=== PATIENT | female | born 1940 | race Caucasian/White ===

== ENCOUNTER 2025-01-13 10:59 | Inpatient (IN) | payer OTHER, MEDICARE ==
[2025-01-13] MEDS ORDERED: NA CHLORIDE 0.9% 1,000 ML ONE (12:35)
[2025-01-13] MEDS ORDERED: NA CHLORIDE 0.9% 50 ML ONE (13:16)
[2025-01-13] MEDS ORDERED: CEFTRIAXONE 1000 MG/VIAL ONE (13:16)
[2025-01-13 13:45] LABS: Sqamous Epithelial <5 /HPF (None Seen); Urine Culture Reflex Order REFLEXED; Urine Microscopic Reflex YN ORDER UMIC
[2025-01-13 13:55] LABS: Influenza A Ag Negative; Influenza B Ag Negative
[2025-01-13 13:56] LABS: SARS-CoV-2 Antigen Rapid Res Positive (Negative)
[2025-01-13 14:10] LABS: Absolute Lymphocytes (CBC) 1.2 K/uL (0.7-4.9); Hematocrit 35.3 % (36.0-45.0); Hemoglobin 11.4 g/dL (12.0-15.0); MCH 29.4 pg (27.0-35.0); MCHC 32.3 g/dL (32.0-36.0); MCV 91.0 fL (80-100); MPV 12.3 fL (7.6-11.3); Nucleated RBC Absolute Count 0.0 (0-0); Nucleated Red Blood Cells % 0.0 % (0-0); RBC Red Blood Cell Count 3.88 M/uL (3.86-4.86); White Blood Count 6.30 thou/uL (4.3-10.9)
--- NOTE | 2025-01-13 14:15 | RAD REPORT ---
EXAMINATION: ONE VIEW CHEST XR CLINICAL INDICATION: Female, 84 years old.,COUGH TECHNIQUE: Frontal chest projection is submitted. Examination is limited by patient positioning and t echnique. COMPARISON: 11/19/2024 FINDINGS: The lungs are well inflated. Progressive right pleural-parenchymal opacification with progressive rig ht effusion component now up to moderate. Partial improvement of left basilar/retrocardiac airspace opacification. Central interstitial prominence, stable. No pneumothorax. The heart is moderately enla rged in size. Mediastinal contours are unchanged.. IMPRESSION: Progressive right basilar pleural-parenchymal opacity favoring atelectasis and effusion. Underlying p neumonia cannot be entirely excluded.
[2025-01-13 14:16] LABS: PT Prothrombin Time 13.6 SECONDS (10-13.0); Protime INR 1.21
[2025-01-13 14:33] LABS: ALT/SGPT 18.0 U/L (13-56); AST/SGOT 21.0 U/L (15-37); Albumin 2.9 g/dL (3.4-5.0); Albumin/Globulin Ratio 0.7 (1.1-1.8); Alkaline Phosphatase 102.0 U/L (45-117); Anion Gap 10.8 mEq/L (5.0-15.0); BUN Blood Urea Nitrogen 15.0 mg/dL (7-18); Bilirubin Indirect, Calculated 0.8 mg/dL (0.2-0.8); Globulin 3.9 g/dL (2.3-3.5); Glucose Level 97.0 mg/dL (74-106); Magnesium 2.1 mg/dL (1.6-2.4); NT PRO-BNP 1287.0 pg/mL (<450); Potassium 2.8 mEq/L (3.5-5.1)
[2025-01-13 14:37] LABS: Troponin High Sensitivity 267.5 pg/mL (<58.9)
[2025-01-13] MEDS ORDERED: ASPIRIN 81 MG CHEWABLE TABLET ONE (14:39)
[2025-01-13] MEDS ORDERED: AZITHROMYCIN 250 MG TAB ONE (14:40)
[2025-01-13] MEDS ORDERED: FAMOTIDINE 20 MG TAB ONE (14:40)
[2025-01-13] MEDS ORDERED: POTASSIUM 25 MEQ EFFERV TAB ONE (15:15)
[2025-01-13] MEDS ORDERED: ENOXAPARIN 100 MG/ML SYR SQ ONE (15:16)
--- NOTE | 2025-01-13 16:24 | ER ---
Nurse's Notes [facility] Name: Svetlana Santiago Age: 84 yrs Sex: Female : 1940 Arrival Date: 01/13/2025 Time: 10:59 Bed 17 Private MD: Diagnosis: UTI/ Urinary tract infection, site not specified;SARS-associated coronavirus as the cause of diseases classified elsewhere;Hypokalemia;Non ST elevation [place];Abnormal electrocardiogram [ECG] [EKG];Acute upper respiratory infection, unspecified;Cough;Pleural effusion, not elsewhere classified-right Presentation: 01/13 11:15 Chief complaint: Patient states: Cough and congestion started Saturday. just ll1 released from our hospital for covid, but her covid test was negative Saturday. + diarrhea. Coronavirus screen: Client denies travel out of the [place] in the last 14 days. congestion, cough unrelated to allergies, difficulty breathing, fatigue, Client presents with at least one sign or symptom that may indicate coronavirus-19. Standard/surgical mask placed on the client. Ebola Screen: Patient denies travel to an Ebola-affected area in the 21 days before illness onset. Resp Distress? Mild respiratory distress is noted. Initial Sepsis Screen: Does the patient meet any 2 criteria? No. Patient's initial sepsis screen is negative. Does the patient have a suspected source of infection? No. Patient's initial sepsis screen is negative. Risk Assessment: Do you want to hurt yourself or someone else? Patient reports no desire to harm self or others. Onset of symptoms was January 08, 2025. 11:15 Method Of Arrival: Ambulatory ll1 11:15 Acuity: AL 3 ll1 Historical: - Allergies: 11:14 Codeine; ll1 11:14 Iodine; ll1 - PMHx: 11:14 diabetes mellitus; one kidney; PULMONARY HYPERTENSION (one kidney); Hypothyroidism; ll1 Hypertensive disorder; - PSHx: 11:14 1 kidney removed; cataract repair; ll1 - Immunization history:: Adult Immunizations up to date. - Infectious Disease History:: Denies. - Social history:: Smoking status: Patient denies any tobacco usage or history of. Screenin:56 [facility] ED Fall Risk Assessment (Adult) History of falling in the last 3 months, db including since admission No falls in past 3 months (0 pts) Confusion or Disorientation No (0 pts) Intoxicated or Sedated No (0 pts) Impaired Gait Yes (1 pt) Mobility Assist Device Used Yes (1 pt) Altered Elimination No (0 pt) Score/Fall Risk Level 0 - 2 = Low Risk Oriented to surroundings, Maintained a safe environment. Abuse screen: Denies threats or abuse. Denies injuries from another. Nutritional screening: No deficits noted. Tuberculosis screening: No symptoms or risk factors identified. Assessment: 13:00 Reassessment: Patient and/or family updated on plan of care and expected duration. Pain db level reassessed. Patient is alert, oriented x 3, equal unlabored respirations, skin warm/dry/pink. PT REPORTS INCREASED SOB WHEN AMBULATORY TO THE RESTROOM. 14:54 Reassessment: Patient appears in no apparent distress at this time. Patient and/or db family updated on plan of care and expected duration. Pain level reassessed. Patient is alert, oriented x 3, equal unlabored respirations, skin warm/dry/pink. General: Appears in no apparent distress. comfortable, Behavior is calm, cooperative. Pain: Denies pain. Neuro: Level of Consciousness is awake, alert, obeys commands, Oriented to person, place, time, situation. Cardiovascular: Capillary refill < 3 seconds. Respiratory: Reports shortness of breath Airway is patent Breath sounds are clear bilaterally. 16:00 Reassessment: Patient appears in no apparent distress at this time. Patient and/or db family updated on plan of care and expected duration. Pain level reassessed. Patient is alert, oriented x 3, equal unlabored respirations, skin warm/dry/pink. 16:46 Reassessment: PT AMBULATORY TO RESTROOM. db 19:49 General: Appears in no apparent distress. comfortable, Behavior is calm, cooperative. al5 Pain: Denies pain. Neuro: Level of Consciousness is awake, alert, obeys commands, Oriented to person, place, time, situation. Cardiovascular: Capillary refill < 3 seconds Patient's skin is warm and dry. Respiratory: Airway is patent Respiratory effort is even, unlabored, Respiratory pattern is regular, symmetrical. GI: No signs and/or symptoms were reported involving the gastrointestinal system. : No signs and/or symptoms were reported regarding the genitourinary system. EENT: No signs and/or symptoms were reported regarding the EENT system. Derm: Skin is intact, Skin is pink, warm \T\ dry. normal. Musculoskeletal: Circulation, motion, and sensation intact. Range of motion: intact in all extremities. Vital Signs: 11:15 BP 108 / 59; Pulse 71; Resp 18; Temp 97.9; Pulse Ox 95% on R/A; Weight 89.36 kg; Height ll1 5 ft. 2 in. ; Pain 0/10; 13:30 BP 173 / 59; Pulse 89; Resp 20; Pulse Ox 96% on 3 lpm NC; db 14:00 BP 113 / 56; Pulse 20; Resp 82; Pulse Ox 100% on 3 lpm NC; db 14:30 BP 116 / 51; Pulse 82; Resp 18; Pulse Ox 100% ; db 15:30 BP 125 / 62; Pulse 78; Resp 18; Pulse Ox 100% on 3 lpm NC; db 16:30 BP 129 / 67; Pulse 76; Resp 18; Pulse Ox 100% on 3 lpm NC; db 17:30 BP 149 / 39; Pulse 73; Resp 18; Pulse Ox 96% 3 lpm ; db 18:00 BP 155 / 51; Pulse 72; Resp 20; Pulse Ox 98% 3 lpm ; db 18:30 BP 125 / 72; Pulse 71; Resp 16; Pulse Ox 100% ; db 19:00 BP 140 / 51; Pulse 67; Resp 16; Pulse Ox 100% on 3 lpm NC; al5 11:15 Body Mass Index 36.03 (89.36 kg, 157.48 cm) ll1 11:15 Pain Scale: Adult ll1 ED Course: 11:04 Patient arrived in ED. mr 11:09 Néstor Hendrix MD is Attending Physician. christopher 11:14 Arm band placed on. ll1 11:18 Triage completed. ll1 12:29 Patient placed in an exam room, on a stretcher. ll1 12:47 Ifeoma Davis, DARBY is Primary Nurse. db 12:54 EKG done, by water pollution control technician. ts3 13:08 Missed attempt(s): 22 gauge in left antecubital area. Bleeding controlled, band aid db applied, catheter tip intact. 13:08 First set of blood cultures drawn. db 13:18 XRAY Chest (1 view) In Process Unspecified. EDMS 13:32 COVID-19 Ag + Flu A+B Ag Sent. ts3 13:33 Urine collected: clean catch specimen, sent to lab. ts3 13:58 Initial lab(s) drawn, by me, sent to lab. Second set of blood cultures drawn. Inserted db saline lock: 22 gauge in left upper arm, using aseptic technique. Blood collected. Flushed with 10 mL NS. 15:44 CT Chest Wo Con In Process Unspecified. EDMS 16:22 Baljinder Osei MD is Hospitalizing Provider. [facility] 19:07 Patient has correct armband on for positive identification. Bed in low position. Call db light in reach. Side rails up X 1. Provided Education on: ADMIT. Client placed on continuous cardiac and pulse oximetry monitoring. NIBP monitoring applied. telemetry monitor on. Pulse ox on. NIBP on. Warm blanket given. Pillow given. 19:07 No provider procedures requiring assistance completed. Patient admitted, IV remains in db place. 19:54 La Harris RN is Primary Nurse. al5 Administered Medications: 13:58 Drug: NS 0.9% IV 1000 ml IV at 1000 ml once; to be given as a bolus over 60 minutes db Route: IV; Rate: 1000 ml; Site: left upper arm; 19:06 Follow up: Response: No adverse reaction; IV Status: Completed infusion; IV Intake: db 1000ml 14:00 Drug: Rocephin IV 1 grams IV at per protocol once; Given slow IV push per pharmacy db instructions Route: IV; Rate: per protocol; Site: left upper arm; 19:06 Follow up: Response: No adverse reaction; IV Status: Completed infusion; IV Intake: 50mldb 14:40 Drug: AZITHromycin PO 500 mg PO once Route: PO; db 19:06 Follow up: Response: No adverse reaction db 14:40 Drug: Famotidine PO 40 mg PO once Route: PO; db 19:06 Follow up: Response: No adverse reaction db 14:40 Drug: Aspirin PO Chewable Tablet 81 mg PO once Route: PO; db 19:06 Follow up: Response: No adverse reaction db 15:30 Drug: Potassium PO Effervescent Tablet 50 mEq PO once; dissolve in 4 ounces of water or db juice Route: PO; 19:06 Follow up: Response: No adverse reaction db 16:00 Drug: Enoxaparin Sub-Q 1 mg/kg Sub-Q once Route: Sub-Q; Site: right lower abdomen; db 19:05 Follow up: Response: No adverse reaction db Medication: 19:05 VIS not applicable for this client. db Intake: 19:06 IV: 1000ml; Total: 1000ml. db 19:06 IV: 50ml; Total: 1050ml. db Outcome: 16:24 Decision to Hospitalize by Provider. [facility] 20:47 Admitted to Med/surg accompanied by tech, family with patient, via wheelchair, room al5 402, with oxygen, with chart, 20:47 Condition: stable 20:47 Instructed on the need for admit, 20:57 Patient left the ED. al5 Signatures: Dispatcher [employer] EDMS Néstor Hendrix MD MD cha Rivera, Mary, [facility] Reg mr Cristina Parry, RN RN ll1 Ifeoma Davis RN RN La Rebolledo RN RN al5 Ashia Bowden ts3 Corrections: (The following items were deleted from the chart) 11:18 11:15 BP 108 / 59; Pulse 71bpm; Resp 18bpm; Pulse Ox 91% RA; Temp 97.9F; 89.36 kg; ll1 Height 5 ft. 2 in.; BMI: 36.0; Pain 0/10, Adult; ll1 11:21 11:15 BP 108 / 59; Pulse 71bpm; Resp 18bpm; Pulse Ox 94% RA; Temp 97.9F; 89.36 kg; ll1 Height 5 ft. 2 in.; BMI: 36.0; Pain 0/10, Adult; ll1 20:57 19:07 Admitted to Med/surg db al5 20:57 19:07 Condition: stable al5 20:57 19:07 Instructed on the need for admit, db al5
--- NOTE | 2025-01-13 16:25 | EDPHYS ---
Physician Documentation [facility] Name: Svetlana Santiago Age: 84 yrs Sex: Female : 1940 Arrival Date: 01/13/2025 Time: 10:59 Bed 17 Private MD: ED Physician Néstor Hendrix HPI: 01/13 16:12 This 84 yrs old Female presents to ER via Ambulatory with complaints of Cough, christopher Congestion, Shortness Of Breath. 16:12 The patient or guardian reports airway noise, cough, difficulty breathing. Onset: The christopher symptoms/episode began/occurred 3 day(s) ago. Severity of symptoms: At their worst the symptoms were moderate, in the emergency department the symptoms are unchanged. Modifying factors: The symptoms are alleviated by nothing, the symptoms are aggravated by exertion. Associated signs and symptoms: The patient has no apparent associated signs or symptoms. The patient has experienced similar episodes in the past, a few times. Historical: - Allergies: 11:14 Codeine; ll1 11:14 Iodine; ll1 - PMHx: 11:14 diabetes mellitus; one kidney; PULMONARY HYPERTENSION (one kidney); Hypothyroidism; ll1 Hypertensive disorder; - PSHx: 11:14 1 kidney removed; cataract repair; ll1 - Immunization history:: Adult Immunizations up to date. - Infectious Disease History:: Denies. - Social history:: Smoking status: Patient denies any tobacco usage or history of. ROS: 16:13 Constitutional: Negative for fever, chills, and weight loss, Eyes: Negative for injury, christopher pain, redness, and discharge, ENT: Negative for injury, pain, and discharge, Neck: Negative for injury, pain, and swelling, Cardiovascular: Negative for chest pain, palpitations, and edema, Abdomen/GI: Negative for abdominal pain, nausea, vomiting, diarrhea, and constipation, Back: Negative for injury and pain, : Negative for injury, bleeding, discharge, and swelling, MS/Extremity: Negative for injury and deformity, Skin: Negative for injury, rash, and discoloration, Neuro: Negative for headache, weakness, numbness, tingling, and seizure, Psych: Negative for depression, anxiety, suicide ideation, homicidal ideation, and hallucinations, Allergy/Immunology: Negative for hives, rash, and allergies, Endocrine: Negative for neck swelling, polydipsia, polyuria, polyphagia, and marked weight changes, Hematologic/Lymphatic: Negative for swollen nodes, abnormal bleeding, and unusual bruising, 16:13 Respiratory: Positive for cough, shortness of breath, at rest. 16:13 MS/extremity: Negative for acute changes, Exam: 16:13 Constitutional: This is a well developed, well nourished patient who is awake, alert, christopher and in no acute distress. Head/Face: Normocephalic, atraumatic. Eyes: Pupils equal round and reactive to light, extra-ocular motions intact. Lids and lashes normal. Conjunctiva and sclera are non-icteric and not injected. Cornea within normal limits. Periorbital areas with no swelling, redness, or edema. ENT: Nares patent. No nasal discharge, no septal abnormalities noted. Tympanic membranes are normal and external auditory canals are clear. Oropharynx with no redness, swelling, or masses, exudates, or evidence of obstruction, uvula midline. Mucous membranes moist. Neck: Trachea midline, no thyromegaly or masses palpated, and no cervical lymphadenopathy. Supple, full range of motion without nuchal rigidity, or vertebral point tenderness. No Meningismus. Chest/axilla: Normal chest wall appearance and motion. Nontender with no deformity. No lesions are appreciated. Cardiovascular: Regular rate and rhythm with a normal S1 and S2. No gallops, murmurs, or rubs. Normal PMI, no JVD. No pulse deficits. Respiratory: Lungs have equal breath sounds bilaterally, clear to auscultation and percussion. No rales, rhonchi or wheezes noted. No increased work of breathing, no retractions or nasal flaring. Abdomen/GI: Soft, non-tender, with normal bowel sounds. No distension or tympany. No guarding or rebound. No evidence of tenderness throughout. Back: No spinal tenderness. No costovertebral tenderness. Full range of motion. Female : Normal external genitalia. Skin: Warm, dry with normal turgor. Normal color with no rashes, no lesions, and no evidence of cellulitis. MS/ Extremity: Pulses equal, no cyanosis. Neurovascular intact. Full, normal range of motion., bilateral aka Neuro: Awake and alert, GCS 15, oriented to person, place, time, and situation. Cranial nerves II-XII grossly intact. Motor strength 5/5 in all extremities. Sensory grossly intact. Cerebellar exam normal. Normal gait. Psych: Awake, alert, with orientation to person, place and time. Behavior, mood, and affect are within normal limits. 16:13 ECG was reviewed by the Attending Physician. Vital Signs: 11:15 BP 108 / 59; Pulse 71; Resp 18; Temp 97.9; Pulse Ox 95% on R/A; Weight 89.36 kg; Height ll1 5 ft. 2 in. ; Pain 0/10; 13:30 BP 173 / 59; Pulse 89; Resp 20; Pulse Ox 96% on 3 lpm NC; db 14:00 BP 113 / 56; Pulse 20; Resp 82; Pulse Ox 100% on 3 lpm NC; db 14:30 BP 116 / 51; Pulse 82; Resp 18; Pulse Ox 100% ; db 15:30 BP 125 / 62; Pulse 78; Resp 18; Pulse Ox 100% on 3 lpm NC; db 16:30 BP 129 / 67; Pulse 76; Resp 18; Pulse Ox 100% on 3 lpm NC; db 17:30 BP 149 / 39; Pulse 73; Resp 18; Pulse Ox 96% 3 lpm ; db 18:00 BP 155 / 51; Pulse 72; Resp 20; Pulse Ox 98% 3 lpm ; db 18:30 BP 125 / 72; Pulse 71; Resp 16; Pulse Ox 100% ; db 19:00 BP 140 / 51; Pulse 67; Resp 16; Pulse Ox 100% on 3 lpm NC; al5 11:15 Body Mass Index 36.03 (89.36 kg, 157.48 cm) ll1 11:15 Pain Scale: Adult ll1 MDM: 11:11 Medical Screening Exam initiated christopher 16:15 Differential diagnosis: Anemia Anxiety Reaction asthma, Bronchitis CHF exacerbation, christopher Chronic Obstructive Pulmonary Disease Myocardial Infarction pulmonary edema, Pulmonary Embolism reactive airway disease, Sepsis Unstable Angina. Antibiotic administration: Rocephin and Zithromax given. Differential Diagnosis: Obstructed Airway Bronchitis Influenza Upper Respiratory Infection Sinusitis Pharyngitis Otitis Media Allergic Rhinitis Asthma Exacerbation Viral Syndrome Pneumonia Tracheal Injury. Immunization status: Pneumococcal vaccine: within last 5 years. Influenza vaccine: within last 5 years. Data reviewed: vital signs, nurses notes, lab test result(s), EKG, radiologic studies, CT scan, plain films. Consideration of Admission/Observation Patient was admitted/placed on observation. Escalation of care including admission/observation considered. I considered the following discharge prescriptions or medication management in the emergency department Medications were administered in the Emergency Department. See MAR. Independent interpretation of the following test(s) in the Emergency Department EKG: See my EKG interpretation above. Test considered but Not performed: Ultrasound NO 2 D ECHO. Historians other than the Patient: Family Member: DAUGHTER IN LAW. Care significantly affected by the following chronic conditions: Diabetes, Hypertension, Chronic Kidney Disease, PULMONARY HYPERTENSION. 01/13 11:11 Order name: Basic Metabolic Panel; Complete Time: 14:51 [facility] 01/13 11:11 Order name: CBC with Diff; Complete Time: 14:51 [facility] 01/13 11:11 Order name: LFT's; Complete Time: 14:51 [facility] 01/13 11:11 Order name: Magnesium; Complete Time: 14:51 [facility] 01/13 11:11 Order name: NT PRO-BNP; Complete Time: 14:51 [facility] 01/13 11:11 Order name: PT-INR; Complete Time: 14:51 [facility] 01/13 11:11 Order name: Troponin HS; Complete Time: 14:51 [facility] 01/13 11:11 Order name: Blood Culture Adult (2) [facility] 01/13 11:11 Order name: Lactate w/ 2H reflex if indic.; Complete Time: 14:51 [facility] 01/13 11:11 Order name: UA Rfx Doug Cult if indicated; Complete Time: 14:12 [facility] 01/13 11:11 Order name: COVID-19 Ag + Flu A+B Ag; Complete Time: 14:12 [facility] 01/13 13:49 Order name: Urine Culture [facility] 01/13 18:19 Order name: Lactate w/ 2H reflex if indic. EDOR 01/13 18:19 Order name: C-Reactive Protein EDMS 01/13 18:19 Order name: C-Reactive Protein EDMS 01/13 18:19 Order name: C-Reactive Protein EDMS 01/13 18:19 Order name: C-Reactive Protein EDMS 01/13 18:19 Order name: Comprehensive Metabolic Panel EDMS 01/13 18:19 Order name: Comprehensive Metabolic Panel EDMS 01/13 18:19 Order name: Ferritin EDMS 01/13 18:19 Order name: Ferritin EDMS 01/13 18:19 Order name: Ferritin EDMS 01/13 18:19 Order name: Ferritin EDMS 01/13 18:19 Order name: Lipid Profile EDMS 01/13 18:19 Order name: Lipid Profile EDMS 01/13 18:19 Order name: CBC with Automated Diff EDMS 01/13 18:19 Order name: CBC with Automated Diff EDMS 01/13 18:19 Order name: CBC with Automated Diff EDMS 01/13 18:19 Order name: CBC with Automated Diff EDMS 01/13 18:19 Order name: Magnesium EDMS 01/13 18:19 Order name: Magnesium EDMS 01/13 18:19 Order name: Phosphorus EDMS 01/13 18:19 Order name: Phosphorus EDMS 01/13 18:19 Order name: Troponin High Sensitivity EDMS 01/13 18:19 Order name: Troponin High Sensitivity [facility]OR 01/13 18:20 Order name: Troponin High Sensitivity [facility] 01/13 11:11 Order name: XRAY Chest (1 view); Complete Time: 14:51 [facility] 01/13 14:55 Order name: CT Chest Wo Con; Complete Time: 18:43 [facility] 01/13 18:44 Order name: INCENTIVE SPIROMETRY [facility] 01/13 18:19 Order name: CONS Physician Consult [facility] 01/13 18:20 Order name: Patient Safety Orders [facility] 01/13 11:11 Order name: Cardiac monitoring; Complete Time: 12:54 [facility] 01/13 11:11 Order name: EKG - Nurse/Tech; Complete Time: 12:54 [facility] 01/13 11:11 Order name: IV Saline Lock; Complete Time: 14:10 [facility] 01/13 11:11 Order name: Labs collected and sent; Complete Time: 14:10 [facility] 01/13 11:11 Order name: O2 Per Protocol; Complete Time: 14:10 [facility] 01/13 11:11 Order name: O2 Sat Monitoring; Complete Time: 14:10 [facility] EC:13 Rate is 87 beats/min. Rhythm is regular. QRS [employer] is Normal. VT interval is normal. QRS christopher interval is normal. QT interval is prolonged at 543 msec. No Q waves. T waves are Normal. ST Segment is depressed in leads II, III, aVF, V1, V2, V3, V4, V5, V6. Clinical impression: NSR w/ Non-specific ST/T Changes. Interpreted by me. Reviewed by me. Administered Medications: 13:58 Drug: NS 0.9% IV 1000 ml IV at 1000 ml once; to be given as a bolus over 60 minutes db Route: IV; Rate: 1000 ml; Site: left upper arm; 19:06 Follow up: Response: No adverse reaction; IV Status: Completed infusion; IV Intake: db 1000ml 14:00 Drug: Rocephin IV 1 grams IV at per protocol once; Given slow IV push per pharmacy db instructions Route: IV; Rate: per protocol; Site: left upper arm; 19:06 Follow up: Response: No adverse reaction; IV Status: Completed infusion; IV Intake: 50mldb 14:40 Drug: AZITHromycin PO 500 mg PO once Route: PO; db 19:06 Follow up: Response: No adverse reaction db 14:40 Drug: Famotidine PO 40 mg PO once Route: PO; db 19:06 Follow up: Response: No adverse reaction db 14:40 Drug: Aspirin PO Chewable Tablet 81 mg PO once Route: PO; db 19:06 Follow up: Response: No adverse reaction db 15:30 Drug: Potassium PO Effervescent Tablet 50 mEq PO once; dissolve in 4 ounces of water or db juice Route: PO; 19:06 Follow up: Response: No adverse reaction db 16:00 Drug: Enoxaparin Sub-Q 1 mg/kg Sub-Q once Route: Sub-Q; Site: right lower abdomen; db 19:05 Follow up: Response: No adverse reaction db Disposition Summary: 01/13/25 16:24 Hospitalization Ordered Notes: Hospitalization Status: Inpatient Admission christopher Provider: Baljinder Osei cha Location: Telemetry/MedSurg (Inpatient) christopher Condition: Fair christopher Problem: new christopher Symptoms: have improved christopher Bed/Room Type: Standard christopher Room Assignment: 402(01/13/25 18:34) bd Diagnosis - UTI/ Urinary tract infection, site not specified christopher - SARS-associated coronavirus as the cause of diseases classified elsewhere christopher - Hypokalemia christopher - Non ST elevation ID christopher - Abnormal electrocardiogram [ECG] [EKG] christopher - Acute upper respiratory infection, unspecified christopher - Cough christopher - Pleural effusion, not elsewhere classified - right christopher Forms: - Medication Reconciliation Form christopher - SBAR form christopher - Leadership Thank You Letter christopher Signatures: Dispatcher [employer] Soraya George Corey, MD MD cha Lewis, Lynsay RN RN ll1 Ifeoma Davis, RN RN db Corrections: (The following items were deleted from the chart) 11: 11:12 BASIC METABOLIC PANEL+C.LAB.BRZ ordered. EDMS EDMS : 11:12 CBC+H.LAB.BRZ ordered. EDMS EDMS 11: 11:12 HEPATIC FUNCTION+C.LAB.BRZ ordered. EDMS EDMS : 11:12 MAGNESIUM+C.LAB.BRZ ordered. EDMS EDMS 11: 11:12 PROBNP+C.LAB.BRZ ordered. EDMS EDMS 11: 11:12 PROTIME (+INR)+COAG.LAB.BRZ ordered. EDMS EDMS 11: 11:12 Troponin High Sensitivity+C.LAB.BRZ ordered. EDMS EDMS 11: 11:12 BLOOD CULTURE*+BA.LAB.BRZ ordered. EDMS EDMS 11: 11:12 LACTATE+C.LAB.BRZ ordered. EDMS EDMS : 11:12 UA Rfx Doug Cult if indicated+U.LAB.BRZ ordered. EDMS EDMS : 11:12 COVID-19 Ag + Flu A+B Ag+I.LAB.BRZ ordered. EDMS EDMS 11: 11:12 Chest Single View+RAD.RAD.BRZ ordered. EDMS EDMS 14:55 14:55 Thorax Wo Con+CT.RAD.BRZ ordered. EDMS EDMS 18:34 16:24 christopher bd
--- NOTE | 2025-01-13 17:10 | RAD REPORT ---
EXAMINATION: CT Thorax Wo Con CLINICAL INDICATION: Female, 84 years old. [facility] MA[facility] Cough;Dyspnea Bed Name: 17 Y TECHNIQUE: Axial CT scan of the chest without intravenous contrast. Multiplanar reformats were genera tanmay and reviewed. One or more of the following dose reduction techniques were used: Automated exposure control, adjustment of the mA and/or kV according patient size, and/or iterative reconstruct ion. Unless otherwise specified, incidental findings do not require dedicated imaging follow-up. COMPARISON: Same date chest radiograph FINDINGS: LOWER NECK: Visualized thyroid gland and soft tissues are normal. LUNGS: Airways dependent segmental airspace opacification with volume loss involving the right middle and lower lobes. Mosaic attenuation throughout the remainder of the lung, could relate to under aeration. PLEURA: Moderate layering right pleural effusion. No pneumothorax. . MEDIASTINUM AND LYMPH NODES: Prominent caliber of the main, right, and left pulmonary arteries. No me diastinal mass or fluid collection. Normal size mediastinal, hilar, and axillary lymph nodes. Dense calcifications along the mitral valve. OSSEOUS STRUCTURES AND CHEST WALL: Intact. UPPER ABDOMEN: No significant abnormalities. IMPRESSION: Moderate right layering pleural effusion with underlying segmental opacities of the right middle and lower lobes, suggestive of atelectasis, however underlying pneumonia cannot be excluded. Other incidental findings as above, including prominent caliber of the central pulmonary arteries, ma y indicate underlying pulmonary hypertension. Please correlate clinically.
[2025-01-13] MEDS ORDERED: ONDANSETRON 4 MG/2 ML VIAL IV PRN (18:12)
[2025-01-13] MEDS ORDERED: ACETAMINOPHEN 325 MG TABLET PO PRN (18:12)
--- NOTE | 2025-01-13 18:27 | P.HP ---
Certification for Inpatient Patient admitted to: Observation With expected LOS: <2 Midnights Practitioner: I am a practitioner with admitting privileges, knowledge of patient current condition, hospital course, and medical plan of care. Services: Services provided to patient in accordance with Admission requirements found in Title 42 Section 412.3 of the Code of Federal Regulations Patient History Date of Service: 01/13/25 Reason for admission: Shortness of breath, fatigue History of Present Illness: 84-year-old woman with a history of chronic respiratory failure on 3 L of oxygen by nasal cannula, history of hypertension and diabetes presented to the emergency department with a complaint of cough, shortness of breath, fatigue for 3 days duration. Patient reports exposure to who was hospitalized for COVID 10 days ago. She states that she started coughing around that time however she tested negative for COVID. She also reports runny nose, no diarrhea, no abdominal pain. Patient was evaluated in the ED, and COVID test was positive. Blood work also shows elevated troponin up to 261, CT chest demonstrated right pleural effusion with right middle and right lower lobe opacifications highly suggestive of atelectasis. Patient maintained on her baseline home oxygen of 3 L by nasal cannula. She states she is ambulatory but fatigues easily which is new for her. Urinalysis positive for UTI. Patient given a dose of Rocephin and Zithromax and admitted for further management. Allergies codeine Allergy (Verified 09/28/24 17:07) Itching/Hives/Rash iodine Allergy (Verified 09/28/24 17:07) Itching/Hives/Rash Home Medications: Aspirin [Aspirin EC] 81 mg PO DAILY 09/28/24 Atorvastatin Calcium 10 mg PO BEDTIME 09/28/24 Calcium Carbonate [Calcium] 500 mg PO DAILY 09/28/24 Cholecalciferol (Vitamin D3) [Vitamin D 1000 Iu Tab*] 1,000 unit PO DAILY 09/28/24 Dapagliflozin Propanediol [Farxiga] 5 mg PO DAILY 09/28/24 Escitalopram [Lexapro*] 10 mg PO DAILY 09/28/24 Latanoprost 2.5 ml OP BEDTIME 09/28/24 Levothyroxine Sodium 137 mcg PO [id number] 09/28/24 Liothyronine Sodium [Cytomel] 5 mcg PO [id number] 09/28/24 Mirabegron [Myrbetriq] 25 mg PO DAILY 09/28/24 Sitagliptin Phosphate [Januvia] 50 mg PO DAILY 09/28/24 carvediloL [Carvedilol] 3.125 mg PO BID 09/28/24 cilostazoL [Cilostazol] 50 mg PO BID 09/28/24 Furosemide [Lasix*] 40 mg PO DAILY 30 Days #30 tab 10/01/24 - Past Medical/Surgical History Diabetic: No -: Hyperlipidemia -: Type 2 diabetes -: Hypothyroidism -: Hypertension -: Depression - Social History Alcohol use: No CD- Drugs: No Caffeine use: No Review of Systems Other: Patient denied any chest pain. She denied any abdominal pain. She denied any fever. She denied any orthopnea or paroxysmal nocturnal dyspnea. She denied any palpitation. Except as documented, all other systems reviewed and negative. Physical Examination - Physical Exam General: Alert, In no apparent distress, Oriented x3 HEENT: Atraumatic, Normocephalic, Mucous membr. moist/pink, EOMI, Sclerae nonicteric Neck: Supple, JVD not distended Respiratory: Clear to auscultation bilaterally, Normal air movement Cardiovascular: No edema, Regular rate/rhythm, Normal S1 S2 Capillary refill: <2 Seconds Gastrointestinal: Normal bowel sounds, Soft and benign, Non-distended, No tenderness Musculoskeletal: No swelling, No tenderness Integumentary: No rashes, No cyanosis Neurological: Normal speech, Normal strength at 5/5 x4 extr, Cranial nerves 3-12 intact Lymphatics: No axilla or inguinal lymphadenopathy - Studies Laboratory Data (last 24 hrs) 01/13/25 01/13/25 01/13/25 13:58 13:58 13:58 WBC 6.30 Hgb 11.4 L Hct 35.3 L Plt Count 181 PT 13.6 H INR 1.21 Sodium 137 Potassium 2.8 L BUN 15 Creatinine 1.58 H Glucose 97 Magnesium 2.1 Total Bilirubin 1.3 H AST 21 ALT 18 Alkaline Phosphatase 102 Assessment and Plan - Plan Diagnosis COVID-19 infection Right-sided pleural effusion Right lobe atelectasis, pneumonia not ruled out NSTEMI Acute cystitis without hematuria Chronic kidney disease stage III Hypokalemia Plan: COVID-19 infection Right-sided pleural effusion Right lower lobe atelectasis, pneumonia not excluded Patient stable on baseline oxygen. Chest imaging does not indicate COVID-pneumonia which is usually diffuse. Admit patient to the medical floor Start IV dexamethasone Monitor inflammatory markers Bronchodilators as needed Pulmonary consult-Dr. Ivory informed. Supplemental oxygen. Lasix as needed NSTEMI Elevated troponin likely secondary to demand ischemia versus myocarditis from COVID infection Trend troponin Obtain echocardiogram Cardiology consult. Acute cystitis without hematuria IV Rocephin Follow urine culture. Chronic kidney disease stage III Monitor renal function. Hypokalemia Replace potassium as needed. Diabetes mellitus type 2 Insulin sliding scale for glucose management. DVT prophylaxis: Heparin SQ Advanced directive: Full code - Advance Directives Does patient have a Living Will: No Does patient have a Durable POA for Healthcare: No Time Spent Managing Pts Care (In Minutes): 76
[2025-01-13] MEDS: POTASSIUM CL SA 10 MEQ TAB PO ONE (18:33)
[2025-01-13] MEDS ORDERED: D10W 125 ML IV PRN (18:34)
[2025-01-13] MEDS ORDERED: GLUCAGON 1 MG/VIAL IM PRN (18:34)
[2025-01-13] MEDS: IPRATROPIUM BROM 0.5MG/2.5ML NEB SCH (20:16)
[2025-01-13] MEDS: ALBUTEROL 2.5 MG/3 ML NEB SOL NEB SCH (20:16)
[2025-01-13] MEDS: INSULIN REGULAR (HUMAN) 100 UNIT/ML SQ SCH (21:00)
[2025-01-13 23:01] VITALS: BMI 36.0
[2025-01-14] MEDS: HEPARIN 5000 UNIT/ML 1 ML VIAL SQ SCH (01:02)
[2025-01-14 01:35] LABS: Troponin High Sensitivity 146.6 pg/mL (<58.9)
[2025-01-14 04:55] LABS: Absolute Lymphocytes (CBC) 0.4 K/uL (0.7-4.9); Hematocrit 32.9 % (36.0-45.0); Hemoglobin 10.9 g/dL (12.0-15.0); MCH 30.1 pg (27.0-35.0); MCHC 33.0 g/dL (32.0-36.0); MCV 91.2 fL (80-100); MPV 12.2 fL (7.6-11.3); Nucleated RBC Absolute Count 0.0 (0-0); Nucleated Red Blood Cells % 0.2 % (0-0); RBC Red Blood Cell Count 3.61 M/uL (3.86-4.86); White Blood Count 4.10 thou/uL (4.3-10.9)
[2025-01-14 05:18] LABS: ALT/SGPT 15.0 U/L (13-56); AST/SGOT 16.0 U/L (15-37); Albumin 2.4 g/dL (3.4-5.0); Albumin/Globulin Ratio 0.7 (1.1-1.8); Alkaline Phosphatase 91.0 U/L (45-117); Anion Gap 7.5 mEq/L (5.0-15.0); BUN Blood Urea Nitrogen 13.0 mg/dL (7-18); C-Reactive Protein 4.37 mg/L (<3.00); Ferritin 101.3 ng/mL (8-252); Globulin 3.5 g/dL (2.3-3.5); Glucose Level 137.0 mg/dL (74-106); HDL Cholesterol 69.0 mg/dL (40-60); LDL Cholesterol, Calculated 52.0 mg/dL (<130); LDL Cholesterol,Calc NonReport 52.0; Magnesium 2.0 mg/dL (1.6-2.4); Potassium 3.5 mEq/L (3.5-5.1)
[2025-01-14 05:51] LABS: Differential Total Cells Count 100; Segmented Neutrophils 72 % (40-80)
[2025-01-14 05:52] LABS: Blood Morphology Comment NOT SEEN (NOT SEEN)
[2025-01-14] MEDS: CEFTRIAXONE 1,000 MG in NA CHLORIDE 0.9% 50 ML IVPB SCH (08:58)
--- NOTE | 2025-01-14 10:56 | P.CNS ---
Date of Consult: 01/14/25 Chief Complaint: Shortness of breath, fatigue History of Present Illness: Patient with PMH of HTN, presented with weakness, SOB and fatigue, denies chest pain, no palpitations, no syncope, patient was diagnosed with COVID PNA and got mild leak in troponin. Allergies codeine Allergy (Verified 01/13/25 21:17) Itching/Hives/Rash iodine Allergy (Verified 01/13/25 21:17) Itching/Hives/Rash Home medications list reviewed: Yes Home Medications: Aspirin [Aspirin EC] 80 mg PO DAILY 09/28/24 Cholecalciferol (Vitamin D3) [Vitamin D 1000 Iu Tab*] 1,000 unit PO DAILY 09/28/24 Escitalopram [Lexapro*] 10 mg PO DAILY 09/28/24 Liothyronine Sodium [Cytomel] 5 mcg PO [id number] 09/28/24 carvediloL [Carvedilol] 3.125 mg PO BID 09/28/24 cilostazoL [Cilostazol] 25 mg PO BID 09/28/24 Furosemide [Lasix*] 40 mg PO DAILY 30 Days #30 tab 10/01/24 Calcium Carbonate [Calcium] 600 mg PO BID 01/14/25 Levothyroxine Sodium 137 mcg PO DAILY 01/14/25 Vitamin E [Vitamin E*] 400 iu PO BID 01/14/25 - Past Medical/Surgical History Diabetic: No -: Hyperlipidemia -: Type 2 diabetes -: Hypothyroidism -: Hypertension -: Depression - Social History Alcohol use: No CD- Drugs: No Caffeine use: No Review of Systems 10-point ROS is otherwise unremarkable Physical Examination Temp Pulse Resp BP Pulse Ox 98.3 F 88 16 104/61 93 01/14/25 08:00 01/14/25 08:00 01/14/25 08:00 01/14/25 08:00 01/14/25 08:00 General: Alert, In no apparent distress HEENT: Atraumatic, PERRLA, Mucous membr. moist/pink, EOMI, Sclerae nonicteric Neck: Supple, 2+ carotid pulse no bruit, No LAD, Without JVD or thyroid abnormality Respiratory: Clear to auscultation bilaterally, Normal air movement Cardiovascular: Regular rate/rhythm, Normal S1 S2 Gastrointestinal: Normal bowel sounds, No tenderness Musculoskeletal: No tenderness Integumentary: No rashes Neurological: Normal gait, Normal speech, Normal tone, Normal affect Lymphatics: No axilla or inguinal lymphadenopathy Laboratory Data (last 24 hrs) 01/13/25 01/13/25 01/13/25 13:58 13:58 13:58 WBC 6.30 Hgb 11.4 L Hct 35.3 L Plt Count 181 PT 13.6 H INR 1.21 Sodium 137 Potassium 2.8 L BUN 15 Creatinine 1.58 H Glucose 97 Magnesium 2.1 Total Bilirubin 1.3 H AST 21 ALT 18 Alkaline Phosphatase 102 - Problems (1) NSTEMI (non-ST elevated myocardial infarction) Current Visit: Yes Status: Acute Plan: Patient denies chest pain, EKG no significant ST-T wave changes. troponin mild elevated and trending down. this is type 2 PR from COVID PNA No further inpatient cardiac work up needed. patient to follow up with cardiology as outpatient. recent echo shown normal EF, normal miranda motion. (2) Pulmonary HTN Current Visit: Yes Status: Acute Plan: recommend lasix 20 mg daily recommend aldactone 25 mg daily (3) Moderate mitral stenosis Current Visit: Yes Status: Acute Plan: repeat echo in 6 months and continue to monitor.
--- NOTE | 2025-01-14 12:54 | P.DS ---
Admission Date: 01/13/25 Discharge Date: 01/14/25 Disposition: ROUTINE DISCHARGE Discharge Condition: FAIR Reason for Admission: Shortness of breath, fatigue Brief History of Present Illness: 84-year-old woman with a history of chronic respiratory failure on 3 L of oxygen by nasal cannula, history of hypertension and diabetes presented to the emergency department with a complaint of cough, shortness of breath, fatigue for 3 days duration. Patient reports exposure to who was hospitalized for COVID 10 days ago. She states that she started coughing around that time however she tested negative for COVID. She also reports runny nose, no diarrhea, no abdominal pain. Patient was evaluated in the ED, and COVID test was positive. Blood work also showed elevated troponin up to 261, CT chest demonstrated right pleural effusion with right middle and right lower lobe opacifications highly suggestive of atelectasis. Patient maintained on her baseline home oxygen of 3 L by nasal cannula. Urinalysis positive for UTI. Patient given a dose of Rocephin and Zithromax and admitted for further management. Hospital Course: Diagnosis COVID-19 infection Right-sided pleural effusion Right lobe atelectasis, pneumonia not ruled out NSTEMI Acute cystitis without hematuria Chronic kidney disease stage III Hypokalemia Patient placed on observation on the medical floor. Troponin mildly elevated but trended down. Patient was stable on her home oxygen. Patient manage cannula. Patient was treated with IV dexamethasone. She was considered noted good candidate for Paxlovid given the time lapse from onset of symptoms of presentation which is several days. Today patient states she feels much better, her fatigue has significantly improved, she has been ambulatory, eating well, denies shortness of breath and her cough is better. Patient vitals are stable, she has been afebrile. Patient seen and evaluated by cardiology, elevated troponin considered secondary to type II NSTEMI from demand ischemia. Patient recent echocardiogram done which was normal. No further cardiac workup and cardiology. Patient seen and evaluated by pulmonary Dr. Ivory Vital Signs/Physical Exam: Temp Pulse Resp BP Pulse Ox 98.3 F 88 16 104/61 93 01/14/25 08:00 01/14/25 08:00 01/14/25 08:00 01/14/25 08:00 01/14/25 08:00 General: Alert, In no apparent distress, Oriented x3 HEENT: Mucous membr. moist/pink, Sclerae nonicteric Neck: Supple, JVD not distended Respiratory: Clear to auscultation bilaterally, Normal air movement Cardiovascular: No edema, Regular rate/rhythm, Normal S1 S2, No murmurs Gastrointestinal: Normal bowel sounds, Soft and benign, Non-distended, No tenderness Musculoskeletal: No swelling, No tenderness Integumentary: No rashes, No cyanosis Neurological: Normal strength at 5/5 x4 extr Laboratory Data at Discharge: WBC 4.10 thou/uL (4.3-10.9) L 01/14/25 04:27 Hgb 10.9 g/dL (12.0-15.0) L 01/14/25 04:27 Hct 32.9 % (36.0-45.0) L 01/14/25 04:27 Plt Count 159 thou/uL (152-406) 01/14/25 04:27 PT 13.6 SECONDS (10-13.0) H 01/13/25 13:58 INR 1.21 01/13/25 13:58 Sodium 139 mEq/L (136-145) 01/14/25 04:27 Potassium 3.5 mEq/L (3.5-5.1) D 01/14/25 04:27 BUN 13 mg/dL (7-18) 01/14/25 04:27 Creatinine 1.41 mg/dL (0.55-1.02) H 01/14/25 04:27 Glucose 137 mg/dL (74-106) H 01/14/25 04:27 Phosphorus 3.9 mg/dL (2.5-4.9) 01/14/25 04:27 Magnesium 2.0 mg/dL (1.6-2.4) 01/14/25 04:27 Total Bilirubin 0.9 mg/dL (0.2-1.0) 01/14/25 04:27 AST 16 U/L (15-37) 01/14/25 04:27 ALT 15 U/L (13-56) 01/14/25 04:27 Alkaline Phosphatase 91 U/L (45-117) 01/14/25 04:27 Triglycerides 46 mg/dL (<150) 01/14/25 04:27 Cholesterol 130 mg/dL (<200) 01/14/25 04:27 HDL Cholesterol 69 mg/dL (40-60) H 01/14/25 04:27 Cholesterol/HDL Ratio 1.88 01/14/25 04:27 Home Medications: Aspirin [Aspirin EC] 80 mg PO DAILY 09/28/24 Cholecalciferol (Vitamin D3) [Vitamin D 1000 Iu Tab*] 1,000 unit PO DAILY 09/28/24 Escitalopram [Lexapro*] 10 mg PO DAILY 09/28/24 Liothyronine Sodium [Cytomel] 5 mcg PO [id number] 09/28/24 carvediloL [Carvedilol] 3.125 mg PO BID 09/28/24 cilostazoL [Cilostazol] 25 mg PO BID 09/28/24 Furosemide [Lasix*] 40 mg PO DAILY 30 Days #30 tab 10/01/24 Calcium Carbonate [Calcium] 600 mg PO BID 01/14/25 Levothyroxine Sodium 137 mcg PO DAILY 01/14/25 Vitamin E [Vitamin E*] 400 iu PO BID 01/14/25 Zinc Sulfate [Zinc Sulfate*] 220 mg PO BID #20 cap 01/14/25 predniSONE [Deltasone] 20 mg PO DAILY #5 tab 01/14/25 New Medications: predniSONE [Deltasone] 20 mg PO DAILY #5 tab Zinc Sulfate [Zinc Sulfate*] 220 mg PO BID #20 cap Diet: AHA Activity: Ad xena Followup: Franca Barrientos DO [Primary Care Provider] - 1 Week Time spent managing pt's care (in minutes): 32
--- NOTE | 2025-01-14 15:50 | P.CNS ---
Date of Consult: 01/14/25 Reason for Consult: R sided effusion Chief Complaint: Shortness of breath, fatigue History of Present Illness: Pt is 84 yrs of age AW hypoxemai R sided effusion worse since last Saturday. Never smopked No prior pulmonary complaints, Exposure to COVID although teste negative Denies any fever.cough or chest pain Allergies codeine Allergy (Verified 01/13/25 21:17) Itching/Hives/Rash iodine Allergy (Verified 01/13/25 21:17) Itching/Hives/Rash Home Medications: Aspirin [Aspirin EC] 80 mg PO DAILY 09/28/24 Cholecalciferol (Vitamin D3) [Vitamin D 1000 Iu Tab*] 1,000 unit PO DAILY 09/28/24 Escitalopram [Lexapro*] 10 mg PO DAILY 09/28/24 Liothyronine Sodium [Cytomel] 5 mcg PO [id number] 09/28/24 carvediloL [Carvedilol] 3.125 mg PO BID 09/28/24 cilostazoL [Cilostazol] 25 mg PO BID 09/28/24 Furosemide [Lasix*] 40 mg PO DAILY 30 Days #30 tab 10/01/24 Calcium Carbonate [Calcium] 600 mg PO BID 01/14/25 Levothyroxine Sodium 137 mcg PO DAILY 01/14/25 Vitamin E [Vitamin E*] 400 iu PO BID 01/14/25 Zinc Sulfate [Zinc Sulfate*] 220 mg PO BID #20 cap 01/14/25 predniSONE [Deltasone] 20 mg PO DAILY #5 tab 01/14/25 - Past Medical/Surgical History Diabetic: No -: Hyperlipidemia -: Type 2 diabetes -: Hypothyroidism -: Hypertension -: Depression - Social History Alcohol use: No CD- Drugs: No Caffeine use: No Review of Systems 10-point ROS is otherwise unremarkable Physical Examination Temp Pulse Resp BP Pulse Ox 98.4 F 68 16 118/60 96 01/14/25 12:00 01/14/25 12:00 01/14/25 12:00 01/14/25 12:00 01/14/25 12:00 General: Alert, Oriented x3 Respiratory: Diminished (R base) Cardiovascular: No edema, Regular rate/rhythm, Normal S1 S2 Gastrointestinal: Normal bowel sounds, Soft and benign - Problems (1) Pleural effusion Current Visit: Yes Status: Acute Plan: PT is 84 yrs of age AW SOB and feeling unwell since last Saturday . Exposed to COVID. Feeling better CXRU and CT sig R sided effusion. Repeat PA and Lat CXRY in am Renal failure Elevated BP and troponin Doubr sepsis. DDx CHF LAsix Echo 09/2024 [id number] NORMAL LEFT VENTRICULAR SYSTOLIC FUNCTION. LEFT VENTRICULAR EJECTION FRACTION 60-65%. NORMAL WALL MOTION. 2. DIASTOLIC DYSFUNCTION. 3. SEVERELY CALCIFIED MITRAL VALVE WITH MODERATE MITRAL STENOSIS. MITRAL VALVE AREA 1.7 CENTIMETERS, MEAN 9 mmHg. 4. SEVERE PULMONARY HYPERTENSION. RIGHT VENTRICULAR SYSTOLIC PRESSURE >60 mmHg. 5. ELEVATED FILLING PRESSURE. RIGHT ATRIAL PRESSURE >20 mmHg. NSTEMI IV lasix poss DC home Am Stop steroids amd nebs Pt has home O2
--- NOTE | 2025-01-14 16:26 | P.PN ---
Subjective Date of Service: 01/14/25 Chief Complaint: Shortness of breath, fatigue Patient has no new complaint. She states that her fatigue has significantly improved. She is tolerating a diet, she is ambulatory and she is stable on her baseline home oxygen 3 L by nasal cannula. No recorded fever. Physical Examination - Vital Signs Temperature: 98.0 F Blood Pressure: 110/49 Pulse: 80 Respirations: 16 Pulse Ox (%): 96 Assessment And Plan - Plan Diagnosis COVID-19 infection Right-sided pleural effusion Right lobe atelectasis, pneumonia not ruled out NSTEMI Acute cystitis without hematuria Chronic kidney disease stage III Hypokalemia Hypothyroidism Plan: COVID-19 infection Right-sided pleural effusion Right lower lobe atelectasis, pneumonia not excluded Patient stable on baseline oxygen. Chest imaging does not indicate COVID-pneumonia which is usually diffuse. Admit patient to the medical floor Start IV dexamethasone Monitor inflammatory markers Bronchodilators as needed Pulmonary consult-Dr. Ivory informed. Supplemental oxygen. Lasix as needed NSTEMI Elevated troponin likely secondary to demand ischemia versus myocarditis from COVID infection Trend troponin Obtain echocardiogram Cardiology consult. Acute cystitis without hematuria IV Rocephin Follow urine culture. Chronic kidney disease stage III Monitor renal function. Hypokalemia Replace potassium as needed. Diabetes mellitus type 2 Insulin sliding scale for glucose management. 01/[address] Ivory's input appreciated. Right pleural effusion suspected to be related to congestive heart failure Trial of IV Lasix. Monitor renal function with diuresis. Steroid discontinued by Dr. Ivory. Continue IV Rocephin for UTI. Follow urine culture Replace electrolyte as needed. Resume home dose Synthroid for hypothyroidism. Cardiology input appreciated. Elevated troponin dementia continue to COVID-19 infection. DVT prophylaxis: Heparin SQ Advanced directive: Full code
[2025-01-14] MEDS: FUROSEMIDE 40 MG/4 ML VIAL IV SCH (16:35)
[2025-01-14] MEDS ORDERED: CILOSTAZOL 50 MG PO SCH (21:00)
[2025-01-14] MEDS ORDERED: HOME MED 1 EA UNK (Calcium Carbonate [Calcium] 600 MG Tablet) PO SCH (21:00)
[2025-01-14] MEDS: CALCIUM CARBONATE 500 MG TAB PO SCH (21:16)
[2025-01-14] MEDS: VITAMIN E 400 IU CAP PO SCH (21:16)
[2025-01-15] MEDS: LEVOTHYROXINE SOD 0.112 MG TAB PO SCH (05:42)
[2025-01-15] MEDS: LEVOTHYROXINE SOD 0.025 MG TAB PO SCH (05:42)
[2025-01-15] MEDS: LIOTHYRONINE SOD 5 MCG TAB PO SCH (05:43)
[2025-01-15 06:45] LABS: Absolute Lymphocytes (CBC) 1.0 K/uL (0.7-4.9); Hematocrit 31.6 % (36.0-45.0); Hemoglobin 10.6 g/dL (12.0-15.0); MCH 30.4 pg (27.0-35.0); MCHC 33.6 g/dL (32.0-36.0); MCV 90.6 fL (80-100); MPV 12.1 fL (7.6-11.3); Nucleated RBC Absolute Count 0.0 (0-0); Nucleated Red Blood Cells % 0.0 % (0-0); RBC Red Blood Cell Count 3.48 M/uL (3.86-4.86); White Blood Count 6.00 thou/uL (4.3-10.9)
[2025-01-15 07:31] LABS: Anion Gap 8.2 mEq/L (5.0-15.0); BUN Blood Urea Nitrogen 16.0 mg/dL (7-18); C-Reactive Protein 3.18 mg/L (<3.00); Ferritin 101.6 ng/mL (8-252); Glucose Level 98.0 mg/dL (74-106); Potassium 3.2 mEq/L (3.5-5.1)
[2025-01-15] MEDS ORDERED: LEVOTHYROXINE SODIUM 137 MCG PO SCH (09:00)
[2025-01-15] MEDS: VITAMIN D 1000 UNIT TAB PO SCH (09:00)
[2025-01-15] MEDS: ASPIRIN EC 81 MG TAB PO SCH (10:01)
[2025-01-15] MEDS: ESCITALOPRAM 20 MG TAB PO SCH (10:01)
--- NOTE | 2025-01-15 12:28 | RAD REPORT ---
EXAMINATION: TWO VIEW CHEST XR CLINICAL INDICATION: Female, 84 years old. [facility] CHF ? TECHNIQUE: 2 view radiographs of the chest were performed. COMPARISON: 01/13/2025 FINDINGS: The lungs are well inflated. Right basilar pleural-parenchymal opacification, with stable moderate la yering effusion component. Stable mild central interstitial prominence, could relate to a degree of central congestion. No pneumothorax. The heart is normal in size. Mediastinal contours are unremarkab le. IMPRESSION: Stable findings as above.
[2025-01-15 15:02] LABS: Color of fluid Yellow (COLORLESS); Fluid Total Cells Count 100
--- NOTE | 2025-01-15 15:03 | RAD REPORT ---
EXAMINATION: Chest Single View VIEWS: Two views CLINICAL INDICATION: Female, 84 years old. post thoracentesis check COMPARISON: Same-day IMPRESSION: Interval right-sided thoracentesis with decreased pleural fluid. No appreciable pneumothorax.
--- NOTE | 2025-01-15 15:57 | P.PN ---
Date of Service: 01/15/25 Subjective: Stable. Her breathing is about the same. She denies fevers and chills. Cough remains Physical Examination - Vital Signs Temperature: 98.0 F Blood Pressure: 110/49 Pulse: 80 Respirations: 16 Pulse Ox (%): 96 Assessment And Plan - Plan Diagnosis COVID-19 infection Right-sided pleural effusion Right lobe atelectasis, pneumonia not ruled out NSTEMI Acute cystitis without hematuria Chronic kidney disease stage III Hypokalemia Hypothyroidism Plan: COVID-19 infection Right-sided pleural effusion Right lower lobe atelectasis, pneumonia not excluded Patient stable on baseline oxygen. Chest imaging does not indicate COVID-pneumonia which is usually diffuse. Admit patient to the medical floor Start IV dexamethasone Monitor inflammatory markers Bronchodilators as needed Pulmonary consult-Dr. Ivory informed. Supplemental oxygen. Lasix as needed NSTEMI Elevated troponin likely secondary to demand ischemia versus myocarditis from COVID infection Trend troponin Obtain echocardiogram Cardiology consult. Acute cystitis without hematuria IV Rocephin Follow urine culture. Chronic kidney disease stage III Monitor renal function. Hypokalemia Replace potassium as needed. Diabetes mellitus type 2 Insulin sliding scale for glucose management. 01/[address] Ivory's input appreciated. Right pleural effusion suspected to be related to congestive heart failure Trial of IV Lasix. Monitor renal function with diuresis. Steroid discontinued by Dr. Ivory. Continue IV Rocephin for UTI. Follow urine culture Replace electrolyte as needed. Resume home dose Synthroid for hypothyroidism. Cardiology input appreciated. Elevated troponin dementia continue to COVID-19 infection. 01/15 Ultrasound-guided thoracentesis today Cultures and cell count pending Continue Rocephin Echo with severe pulmonary hypertension DVT prophylaxis: Heparin SQ Advanced directive: Full code
--- NOTE | 2025-01-15 16:29 | RAD REPORT ---
PROCEDURE: ULTRASOUND GUIDED THORACENTESIS CLINICAL INDICATION: [facility] MA[facility] Right-sided pleural effusion PROCEDURE DETAILS: Consent: Informed consent for the procedure including risks, benefits and alternatives was obtained a nd time-out was performed prior to the procedure. Preparation: The site was prepared and draped using maximal sterile barrier technique including cutan eous antisepsis. Procedure: Initial limited thoracic ultrasound was performed and a moderate pleural effusion was seen . A safe window for thoracentesis was identified with ultrasound to parker a suitable access site. Local anesthesia was administered. The pleural cavity was accessed, and fluid return confirmed positi on. A 6F [id number] catheter was placed and fluid was drained. The catheter was removed, and a sterile bandage was applied. . Estimated blood loss: Less than 10 mL. IMPRESSION: SUCCESSFUL ultrasound guided thoracentesis, yielding 1.1 cm of serous fluid. Additional procedure(s): Limited thoracic ultrasound. PLAN: Aspirated fluid was sent for analysis.
[2025-01-15] MEDS: POTASSIUM CL SA 10 MEQ TAB PO ONE (20:46)
[2025-01-15] MEDS: ALBUTEROL 2.5 MG/3 ML NEB SOL ONE (20:47)
[2025-01-16] MEDS: ALBUTEROL 2.5 MG/3 ML NEB SOL ONE (00:39)
[2025-01-16 06:31] LABS: Absolute Lymphocytes (CBC) 1.1 K/uL (0.7-4.9); Hematocrit 31.4 % (36.0-45.0); Hemoglobin 10.4 g/dL (12.0-15.0); MCH 30.4 pg (27.0-35.0); MCHC 33.2 g/dL (32.0-36.0); MCV 91.6 fL (80-100); MPV 12.2 fL (7.6-11.3); Nucleated RBC Absolute Count 0.0 (0-0); Nucleated Red Blood Cells % 0.0 % (0-0); RBC Red Blood Cell Count 3.43 M/uL (3.86-4.86); White Blood Count 6.20 thou/uL (4.3-10.9)
[2025-01-16 06:35] LABS: C-Reactive Protein 6.51 mg/L (<3.00); Ferritin 99.8 ng/mL (8-252)
[2025-01-16 07:42] LABS: AST/SGOT 11 U/L (15-37); Albumin 2.2 g/dL (3.4-5.0); Albumin/Globulin Ratio 0.7 (1.1-1.8); Alkaline Phosphatase 74 U/L (45-117); Anion Gap 8.7 mEq/L (5.0-15.0); BUN Blood Urea Nitrogen 14 mg/dL (7-18); Globulin 3.3 g/dL (2.3-3.5); Glucose Level 90 mg/dL (74-106); Potassium 3.7 mEq/L (3.5-5.1)
[2025-01-16 07:46] LABS: ALT/SGPT < 14 U/L (13-56)
[2025-01-16 11:43] VITALS: BP 98/41; TEMP 98.2
[2025-01-16 12:15] VITALS: O2SAT 100
--- NOTE | 2025-01-16 12:28 | RAD REPORT ---
EXAM: Chest Pa And Lat (2 Views) HISTORY: 84 years Female Follow-up pneumonia COMPARISON: 01/13/2025 FINDINGS: LUNGS/PLEURA: Reaccumulation of some of the right pleural fluid with persistent right lower lobe cons olidation. CARDIAC/MEDIASTINUM: Mild cardiomegaly UPPER ABDOMEN: No significant abnormality. BONES: No acute abnormality. LINES/TUBES/OTHER: N/A IMPRESSION: Reaccumulation of some of the right pleural effusion following yesterday's thoracentesis. Persistent right basilar consolidation.
--- NOTE | 2025-01-16 13:59 | P.DS ---
Admission Date: 01/15/25 Discharge Date: 01/16/25 Disposition: ROUTINE DISCHARGE Discharge Condition: FAIR Reason for Admission: Shortness of breath, fatigue Brief History of Present Illness: 84-year-old woman with a history of chronic respiratory failure on 3 L of oxygen by nasal cannula, history of hypertension and diabetes presented to the emergency department with a complaint of cough, shortness of breath, fatigue for 3 days duration. Patient reports exposure to who was hospitalized for COVID 10 days ago. She states that she started coughing around that time however she tested negative for COVID. She also reports runny nose, no diarrhea, no abdominal pain. Patient was evaluated in the ED, and COVID test was positive. Blood work also shows elevated troponin up to 261, CT chest demonstrated right pleural effusion with right middle and right lower lobe opacifications highly suggestive of atelectasis. Patient maintained on her baseline home oxygen of 3 L by nasal cannula. She states she is ambulatory but fatigues easily which is new for her. Urinalysis positive for UTI. Patient given a dose of Rocephin and Zithromax and admitted for further management. Hospital Course: Physical Examination - Vital Signs Temperature: 98.0 F Blood Pressure: 110/49 Pulse: 80 Respirations: 16 Pulse Ox (%): 96 Assessment And Plan - Plan Diagnosis COVID-19 infection Right-sided pleural effusion Right lobe atelectasis, pneumonia not ruled out NSTEMI Acute cystitis without hematuria Chronic kidney disease stage III Hypokalemia Hypothyroidism Plan: COVID-19 infection Right-sided pleural effusion Right lower lobe atelectasis, pneumonia not excluded Patient stable on baseline oxygen. Chest imaging does not indicate COVID-pneumonia which is usually diffuse. Admit patient to the medical floor Start IV dexamethasone Monitor inflammatory markers Bronchodilators as needed Pulmonary consult-Dr. Ivory informed. Supplemental oxygen. Lasix as needed NSTEMI Elevated troponin likely secondary to demand ischemia versus myocarditis from COVID infection Trend troponin Obtain echocardiogram Cardiology consult. Acute cystitis without hematuria IV Rocephin Follow urine culture. Chronic kidney disease stage III Monitor renal function. Hypokalemia Replace potassium as needed. Diabetes mellitus type 2 Insulin sliding scale for glucose management. 01/[address] Ivory's input appreciated. Right pleural effusion suspected to be related to congestive heart failure Trial of IV Lasix. Monitor renal function with diuresis. Steroid discontinued by Dr. Ivory. Continue IV Rocephin for UTI. Follow urine culture Replace electrolyte as needed. Resume home dose Synthroid for hypothyroidism. Cardiology input appreciated. Elevated troponin dementia continue to COVID-19 infection. 01/15 Ultrasound-guided thoracentesis today Cultures and cell count pending Continue Rocephin Echo with severe pulmonary hypertension 01/16 Repeat chest x-ray improved this morning s/p thoracentesis yesterday, aspirate fluid studies pending Completed antibiotics with Omnicef upon discharge Echo with moderate mitral valve stenosis and severe pulmonary hypertension White count remains normal Kidney function continues to improve DVT prophylaxis: Heparin SQ Advanced directive: Full code Vital Signs/Physical Exam: Temp Pulse Resp BP Pulse Ox 98.2 F 82 16 98/41 L 100 01/16/25 11:42 01/16/25 11:42 01/16/25 11:42 01/16/25 11:42 01/16/25 11:42 Laboratory Data at Discharge: WBC 6.20 thou/uL (4.3-10.9) 01/16/25 05:39 Hgb 10.4 g/dL (12.0-15.0) L 01/16/25 05:39 Hct 31.4 % (36.0-45.0) L 01/16/25 05:39 Plt Count 154 thou/uL (152-406) 01/16/25 05:39 PT 13.6 SECONDS (10-13.0) H 01/13/25 13:58 INR 1.21 01/13/25 13:58 Sodium 137 mEq/L (136-145) 01/16/25 05:39 Potassium 3.7 mEq/L (3.5-5.1) D 01/16/25 05:39 BUN 14 mg/dL (7-18) 01/16/25 05:39 Creatinine 1.29 mg/dL (0.55-1.02) H 01/16/25 05:39 Glucose 90 mg/dL (74-106) 01/16/25 05:39 Phosphorus 3.9 mg/dL (2.5-4.9) 01/14/25 04:27 Magnesium 2.0 mg/dL (1.6-2.4) 01/14/25 04:27 Total Bilirubin 0.9 mg/dL (0.2-1.0) 01/16/25 05:39 AST 11 U/L (15-37) L 01/16/25 05:39 ALT < 14 U/L (13-56) 01/16/25 05:39 Alkaline Phosphatase 74 U/L (45-117) 01/16/25 05:39 Triglycerides 46 mg/dL (<150) 01/14/25 04:27 Cholesterol 130 mg/dL (<200) 01/14/25 04:27 HDL Cholesterol 69 mg/dL (40-60) H 01/14/25 04:27 Cholesterol/HDL Ratio 1.88 01/14/25 04:27 Home Medications: Aspirin [Aspirin EC] 80 mg PO DAILY 09/28/24 Cholecalciferol (Vitamin D3) [Vitamin D 1000 Iu Tab*] 1,000 unit PO DAILY 09/28/24 Escitalopram [Lexapro*] 10 mg PO DAILY 09/28/24 Liothyronine Sodium [Cytomel] 5 mcg PO [id number] 09/28/24 carvediloL [Carvedilol] 3.125 mg PO BID 09/28/24 cilostazoL [Cilostazol] 25 mg PO BID 09/28/24 Calcium Carbonate [Calcium] 600 mg PO BID 01/14/25 Levothyroxine Sodium 137 mcg PO DAILY 01/14/25 Vitamin E [Vitamin E*] 400 iu PO BID 01/14/25 Zinc Sulfate [Zinc Sulfate*] 220 mg PO BID #20 cap 01/14/25 predniSONE [Deltasone] 20 mg PO DAILY #5 tab 01/14/25 Azithromycin Tab [Zithromax*] 250 mg PO DAILY 5 Days #5 rafa 01/16/25 Cefdinir [Omnicef] 300 mg PO BID 5 Days #10 cap 01/16/25 Furosemide [Lasix*] 40 mg PO DAILY 30 Days #30 tab 01/16/25 Spironolactone [Aldactone] 25 mg PO DAILY 30 Days #30 tab 01/16/25 New Medications: Spironolactone [Aldactone] 25 mg PO DAILY 30 Days #30 tab Furosemide [Lasix*] 40 mg PO DAILY 30 Days #30 tab Cefdinir [Omnicef] 300 mg PO BID 5 Days #10 cap predniSONE [Deltasone] 20 mg PO DAILY #5 tab Zinc Sulfate [Zinc Sulfate*] 220 mg PO BID #20 cap Azithromycin Tab [Zithromax*] 250 mg PO DAILY 5 Days #5 rafa Diet: AHA Activity: Ad xena Followup: Franca Barrientos DO [Primary Care Provider] - 1 Week
[2025-01-19 19:52] LABS: LD, PLEURAL FLUID 84.0 U/L; TOTAL PROTEIN, PLEURAL FLUID 3.1 g/dL
[2025-01-21 04:00] LABS: ALBUMIN, PLEURAL FLUID 1.8 g/dL
== END 2025-01-16 15:15 | disposition home or self-care (01) | DRG 177 ==
LOC: ER 10:59 → ERHOLD 18:11 → 4TH 19:46 → OBSVTOIN 01-15 12:51
PROVIDERS: ADMIT Internal Medicine; ATTEND Family Medicine
PROC: 0W993ZZ Drainage of Right Pleural Cavity, Percutaneous Approach (ICD-10-PCS; principal; 2025-01-15)
DX: U07.1 COVID-19 (principal); I21.A1 Myocardial infarction type 2; J12.82 Pneumonia due to coronavirus disease 2019; N30.00 Acute cystitis without hematuria; I13.0 Hypertensive heart and chronic kidney disease with heart failure and stage 1 through stage 4 chronic kidney disease, or unspecified chronic kidney disease; I50.9 Heart failure, unspecified; N18.30 Chronic kidney disease, stage 3 unspecified; E11.22 Type 2 diabetes mellitus with diabetic chronic kidney disease; E87.6 Hypokalemia; E78.5 Hyperlipidemia, unspecified; E03.9 Hypothyroidism, unspecified; I05.0 Rheumatic mitral stenosis; I27.20 Pulmonary hypertension, unspecified; J06.9 Acute upper respiratory infection, unspecified; Z90.5 Acquired absence of kidney; Z88.5 Allergy status to narcotic agent; Z99.81 Dependence on supplemental oxygen; Z79.82 Long term (current) use of aspirin; Z79.02 Long term (current) use of antithrombotics/antiplatelets; Z79.890 Hormone replacement therapy; Z79.899 Other long term (current) drug therapy
CPT/HCPCS: 32555; 36415; 71045; 71046; 71250; 76604; 80048; 80053; 80061; 80076; 81001; 82042; 82728; 82945; 82947; 83036; 83605; 83615; 83735; 83880; 84100; 84157; 84484; 85025; 85610; 86140; 87040; 87070; 87077; 87086; 87088; 87186; 87428; 89050; 93005; 94010; 94640; 94760; 96365; 96366; 96372; 99285; G0378; J0696; J1100; J1644; J1650; J1815; J1938; J7030; J7613; J7644